=== PATIENT | male | born 1985 | race African-American/Black ===

== ENCOUNTER 2020-11-28 20:32 | Emergency (ER) | payer BC, OTHER ==
[~2020-11-28] VITALS: Ht 193 cm; Wt 104.3 kg
--- NOTE | ~2020-11-28 | EKG ---
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
[~2020-11-28 20:32] MED LIST: NAPROSYN500 MG PO; ROBAXIN 750 MG750 M1 PO
[2020-11-28 20:54] LABS: ABSOLUTE NEUTROPHILS 13.2 thou/uL (1.4-8.2); BASOPHILS 0.3 % (0.0-2.0); EOSINOPHILS 0.1 % (0.0-3.0); HEMATOCRIT 43.2 % (42.0-52.0); LYMPHOCYTES 13.8 % (24.0-44.0); MCH 28.6 pg (26.0-34.0); MCHC 34.8 g/dL (28.0-37.0); MCV 82.2 fL (80.0-100.0); MONOCYTES 9.5 % (1.0-8.0); PLATELET COUNT 258 thou/uL (150-400); POLYS 76.3 % (36.0-66.0); RBC 5.26 mil/uL (4.50-6.00); RDW 14.5 % (10.5-14.5); WBC 17.4 thou/uL (4.0-11.0)
[2020-11-28 21:37] LABS: CALCIUM 9.1 mg/dL (8.5-10.1); CREATININE 1.1 mg/dL (0.7-1.3)
[2020-11-28 21:38] LABS: POTASSIUM 3.1 mmol/L (3.5-5.1)
[2020-11-28] MEDS ORDERED: CLONIDINE HCL0.1 M1 PO (23:10)
[2020-11-28] MEDS ORDERED: ATIVAN1 M1 PO (23:10)
[2020-11-28 23:23] VITALS: BP 170/97
[2020-11-29 00:25] LABS: URINE BILIRUBIN NEGATIVE (Negative); URINE BLOOD 1+ (Negative); URINE CLARITY CLEAR; URINE COLOR ORANGE; URINE GLUCOSE-RANDOM* NEGATIVE (Negative); URINE KETONES TRACE (Negative); URINE LEUKOCYTES-REFLEX TRACE (Negative); URINE NITRITE-REFLEX NEGATIVE (Negative); URINE PROTEIN (DIPSTICK) TRACE (Negative); URINE SPECIFIC GRAVITY 1.015 (1.005-1.035)
[2020-11-29 00:34] LABS: AMP/METHAMP Negative (Negative); BARBITURATES Negative (Negative); BENZODIAZEPINES Negative (Negative); COCAINE Negative (Negative); METHADONE Negative (Negative); OPIATES Negative (Negative); PCP Negative (Negative)
[2020-11-29 00:44] LABS: CASTS None Seen /LPF (None Seen); MUCUS 0-3 Light strn/LPF (None Seen); SQUAMOUS None Seen /LPF (0-3); URINE WBC-REFLEX 0-5 Rare /HPF (0-5)
[2020-11-29 00:45] LABS: BACTERIA-REFLEX 1-9 Few /HPF (None Seen); CRYSTALS None Seen /LPF (None Seen); TRANSITIONAL EPITHEL CELL 4-10 Moderate /LPF (None Seen); URINE RBC 1-2 Rare /HPF (NONE SEEN)
--- NOTE | 2020-11-29 08:21 | EKG ---
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1985 Requested By: Chevy Anderson Order Number: [id number] MD: Tate Lomeli Measurements Intervals [place] Rate: 72 P: 57 NE: 155 QRS: 29 QRSD: 99 T: 21 QT: 395 QTc: 433 Interpretive Statements Sinus rhythm Probable left atrial enlargement Probable anteroseptal infarct, old No previous ECG available for comparison Electronically Signed On 11-29-2020 8:20:51 CDT by Tate Lomeli [email or web address] <ELECTRONICALLY SIGNED> By: Tate Lomeli MD, LOCATED WITHIN [facility] 11/29/2020 10 2211 Tate Lomeli MD, FACC /EPI
== END 2020-11-28 23:25 | disposition home or self-care (01) ==
LOC: ER 20:32
PROVIDERS: Nurse Practitioner
DX: F19.239 Other psychoactive substance dependence with withdrawal, unspecified (principal); E87.6 Hypokalemia; Z79.899 Other long term (current) drug therapy